=== PATIENT | male | born 1990 | race Two or more races ===

== ENCOUNTER 2021-05-10 11:59 | Emergency (ER) | payer SELFPAY ==
[2021-05-10 12:13] VITALS: BP 164/102; PULSE 150; RESP 22; TEMP 36.8; O2SAT 98
--- NOTE | 2021-05-10 12:18 | ED.ABDPAIN ---
HPI - Abdominal Pain General Chief Complaint: Abdominal Pain Stated Complaint: Stomach Pain Time Seen by Provider: 05/10/21 12:11 Source: patient and RN notes reviewed Mode of arrival: ambulatory Limitations: no limitations History of Present Illness HPI narrative: 30-year-old male presents with concern for abdominal pain for 2 to 3 days. Reports his last bowel movement was on Friday. Reports feeling hot and sweaty. Denies vomiting or diarrhea. MD elicited complaint: abdominal pain Related Data Home Medications Medication Instructions Recorded Confirmed No Home Medications 05/10/21 05/10/21 Allergies Allergy/AdvReac Type Severity Reaction Status Date / Time No Known Allergies Allergy Verified 05/10/21 12:11 Review of Systems Review of Systems: CONSTITUTIONAL: Reports malaise,sweats. Denies fever. GASTROINTESTINAL: Reports abdominal pain, bloating, constipation. Denies nausea, vomiting, diarrhea, bloody, or mucous stools. All systems reviewed & are unremarkable except as noted in HPI and below PMFSH Social History Social History Gender identity (if verbalized by the patient): Male Comments At time of signature, agree with nursing past medical, surgical, social and family history. There is no relevant family history pertinent to the presenting complaint Exam Narrative: GENERAL: ill-appearing, diaphoretic HEAD: Normocephalic. EYES: PERRLA, sclera jaundiced NECK: Supple. CHEST: Clear to auscultation. No respiratory distress. HEART: Tachycardic ABDOMEN: Tender, distended, hypo-active bowel sounds SKIN: Warm, diaphoretic NEURO: Alert and oriented x3. PSYCH: Normal mood and affect Course Course Emergency Course: Patient is aware of, understands and agrees be transferred to the emergency department via EMS. Portions of this record may have been created with voice recognition software Vital Signs Vital signs: Vital Signs Temperature 98.2 F 05/10/21 12:13 Pulse Rate 150 H 05/10/21 12:13 Respiratory Rate 22 H 05/10/21 12:13 Blood Pressure 164/102 H 05/10/21 12:13 Pulse Oximetry 98 05/10/21 12:13 Temperature 98.2 F 05/10/21 12:13 Pulse Rate 150 H 05/10/21 12:13 Respiratory Rate 22 H 05/10/21 12:13 Blood Pressure 164/102 H 05/10/21 12:13 Pulse Oximetry 98 05/10/21 12:13 Reviewed. Patient's condition did not allow for education about hypertension Transfer Transfered to: [place] Transportation: ALS Transfer rationale: Abdominal pain, tachycardia Accepting physician: Dr. Ochoa, report given directly to Dr. Ochoa MDM - Abdominal Pain MDM Narrative Medical decision making narrative: Exam findings warrant further evaluation emergency department Differential Diagnosis Differential diagnosis: Likely abdominal pain, acute appendicitis, constipation, diverticulitis, small bowel obstruction and other (Acute abdomen) Critical Care Time Critical Care Time Critical Care Time: No Discharge Plan Discharge Clinical Impression: Abdominal pain Qualifiers: Abdominal location: generalized Qualified Code(s): R10.84 - Generalized abdominal pain Patient Disposition: Acute Care Hospital Condition: Stable Prescriptions: No Action No Home Medications RF: 0 Follow-up/Referrals: PHYSICIAN,LASER PRINTING OPERATOR [Primary Care Provider] - Time of Disposition: 13:32
[2021-05-10 12:25] VITALS: BP 155/115; PULSE 145
== END 2021-05-10 12:25 | disposition short-term general hospital (02) ==
PROVIDERS: Emergency Provider Nurse Practitioner
DX: R10.84 Generalized abdominal pain (principal)
CPT/HCPCS: 99205; G0463

== ENCOUNTER 2021-05-10 12:44 | Inpatient (IN) | payer SELFPAY ==
--- NOTE | ~2021-05-10 | CT_ITS ---
EXAMINATION: CT abdomen pelvis w con INDICATION: Generalized abdominal pain TECHNIQUE: Computed tomographic images of the abdomen and pelvis were obtained after the administrati on of 100 cc of Omnipaque 350 intravenous contrast. The dose-length product (DLP) was 718.04 mGy-cm. Automated exposure control and iterative reconstruction technique were employed. COMPARISON: None available FINDINGS: Minimal dependent atelectasis is present in the lung bases. The heart size is normal. There is a small left pleural effusion. Bilateral gynecomastia is noted. The liver, spleen, gallbladder, a nd adrenal glands are normal. There is decreased enhancement in the body and tail of the pancreas rel ative to the head and neck. There is fluid within the body and tail of pancreas as well as surroundin g the pancreas. Fluid also tracks along the pericolic gutters and into the pelvis. The kidneys are un remarkable. No pathologically enlarged abdominal or pelvic lymph nodes are identified. There is no fr ee intraperitoneal gas or evidence of bowel obstruction. The appendix is normal. IMPRESSION: 1. Findings consistent with necrotizing pancreatitis with sterile acute necrotic collections. 2. Small volume of ascites. Reviewed, dictated and finalized at location B. IMPRESSION: 1. Findings consistent with necrotizing pancreatitis with sterile acute necroti c collections. 2. Small volume of ascites.
--- NOTE | ~2021-05-10 | XR_ITS ---
EXAMINATION: XR chest 1V portable DATE: 05/10/2021 16:19 INDICATION: Sepsis. Pancreatitis. TECHNIQUE: frontal view of the chest was obtained. COMPARISON: CT abdomen and pelvis dated 05/10/2021 FINDINGS: Small left pleural effusion with blunting at the left costophrenic angle. Opacities in the bilateral lower lung zones. No pneumothorax or right pleural effusion. The cardiomediastinal silhouette is norm al. Visualized bones and soft tissues are unremarkable. IMPRESSION: 1. Opacities in the bilateral lower lung zones which could represent atelectasis, pneumonia or pulmon nir edema. 2. Small left pleural effusion. Reviewed, dictated and finalized at location A. IMPRESSION: 1. Opacities in the bilateral lower lung zones which could represent atelectasi s, pneumonia or pulmonary edema. 2. Small left pleural effusion.
[2021-05-10 12:45] VITALS: BP 161/109; PULSE 136; RESP 21; TEMP 36.1; O2SAT 97
--- NOTE | 2021-05-10 12:45 | ED.ABDPAIN ---
HPI - Abdominal Pain General Chief Complaint: Abdominal Pain Stated Complaint: Abd pain, fast heart rate Time Seen by Provider: 05/10/21 12:45 History of Present Illness HPI narrative: Generalized abdominal pain and distension for a few days. Associated with constipation and nausea. Last BM 2 days ago. Seen at urgent care today and noted to be jaundiced. He was previously a daily drinker, last drink 2 days ago. Related Data Home Medications Medication Instructions Recorded Confirmed No Home Medications 05/10/21 05/10/21 Allergies Allergy/AdvReac Type Severity Reaction Status Date / Time No Known Allergies Allergy Verified 05/10/21 12:11 Review of Systems Review of Systems: All systems reviewed & are unremarkable except as noted in HPI and below Constitutional: Constitutional: Denies fever(s) Cardiovascular: Cardiovascular: Denies chest pain Respiratory: Respiratory: Denies dyspnea Gastrointestinal: Gastrointestinal: Reports abdominal pain and Reports nausea Genitourinary: Genitourinary: Reports no additional male genitourinary complaints Neurologic: Reports weakness [facility] Social History Social History (Updated 05/10/21 @ 16:56 by Salvador Em MD) Alcohol intake: current Alcohol use details: Daily, heavy Gender identity (if verbalized by the patient): Male Exam Const: General: alert and ill appearing acutely Orientation/consciousness: patient oriented x3 Other: Mild distress HENMT: Head: normal to inspection Eyes: Conjunctivae: conjunctival abnormality bilateral conjunctival icterus Neck: Neck: normal visual inspection Resp: Effort & Inspection: normal respiratory effort Auscultation: clear to auscultation bilaterally Cardio: Rate: tachycardic Rhythm: regular rhythm GI: Inspection: distended GI Palp: Yes Tenderness to palpation present (GI), No Guarding due to palpation present (GI) and No Rebound tenderness present Percussion: Yes Fluid wave present Skin: General skin exam: jaundice Neuro: General: patient oriented x3, moves all extremities and no focal motor deficits Other: tremor. Extrem: General: normal to inspection Course Vital Signs Vital signs: Vital Signs Temperature 36.1 C L 05/10/21 12:45 Pulse Rate 136 H 05/10/21 12:45 Respiratory Rate 21 H 05/10/21 12:45 Blood Pressure 161/109 H 05/10/21 12:45 Pulse Oximetry 97 05/10/21 12:45 Temperature 36.1 C L 05/10/21 12:45 Pulse Rate 97 05/10/21 16:22 Respiratory Rate 18 05/10/21 16:22 Blood Pressure 133/96 H 05/10/21 16:22 Pulse Oximetry 100 05/10/21 16:22 MDM - Abdominal Pain MDM Narrative Medical decision making narrative: CT shows necrotizing pancreatitis. Dr. St recommending transfer. Dr. Alves will consult, but feels transfer would be better if posible. [facility], [facility], [facility] all have no beds. Placed on wait list for [facility] and [facility]. Neither of the medical centers in [place] have any beds available. Differential Diagnosis Differential diagnosis: Likely acute appendicitis, calculus of kidney, constipation, diverticulitis, pancreatitis and small bowel obstruction Medical Records Attestation: I reviewed the patient's medical records. Lab Data Attestation: I reviewed the patient's lab results. Result diagrams: 05/10/21 13:15 05/10/21 13:15 Labs: Lab Results 05/10/21 05/10/21 05/10/21 Range/Units 13:15 13:15 13:15 WBC 24.4 H (4.5-10.0) K/mm3 RBC 5.70 (4.6-6.20) M/mm3 Hgb 20.9 H (14.0-18.0) g/dL Hct 59.0 H (42.0-52.0) % MCV 103.5 H (80-100) fl MCH 36.7 H (26-34) pg MCHC 35.4 (32-36) g/dl RDW 15.5 H (11.5-14.5) % Plt Count 101 L (150-375) k/mm3 MPV 11.0 H (7.4-10.4) fl Immature Gran % (Auto) 0.8 H (0-0.5) % Neut % (Auto) 92.4 H (45.5-73.1) % Lymph % (Auto) 2.9 L (18.3-44.2) % [place] % (Auto) 3.3 (2.6-8.5) % Eos % (Auto) 0.0 (0-4.4) % Baso % (Auto) 0.6 (0.
[2021-05-10] MEDS: LORazepam INJ (*CRX) 2 MG/ML VIAL IV PUSH ×3 (13:01→22:51)
[2021-05-10] MEDS: SODIUM CHLORIDE 0.9% IV 1,000 ML 999 ML IV CONT ×3 (13:02→15:19)
--- NOTE | 2021-05-10 13:05 | ECG_ITS ---
Rate 129 CO 142 QRSd 89 QT 317 QTc 465 --[place]-- P 44 QRS 42 T 11 SINUS TACHYCARDIA DELAYED PRECORDIAL R/S TRANSITION BORDERLINE T WAVE ABNORMALITY- INFERIOR LEADS BASELINE ARTIFACT- II, III, AVR, AVF, V1, V3-V6 ABNORMAL ECG Electronically Signed On 05-11-2021 14:34:58 CDT by El Gonzalez D.O. NO PREVIOUS ECG AVAILABLE FOR COMPARISON [facility]
[2021-05-10 13:36] LABS: Lactic Acid Reflex 2.8 mmol/L (0.7-2.1)
[2021-05-10 13:37] LABS: Alanine Aminotransferase 73 U/L (4-50); Albumin Level 4.5 g/dL (3.5-5.1); Alkaline Phosphatase 110 U/L (38-126); Anion Gap 13 mmol/L (8-16); Aspartate Amino Transferase 79 U/L (17-59); Basophils Absolute Auto 0.1 K/mm3 (0.0-0.1); Basophils Percent Auto 0.6 % (0.2-1.2); Bilirubin,Total 5.9 mg/dL (0.2-1.3); Blood Urea Nitrogen 13 mg/dL (9-20); Calcium 8.9 mg/dL (8.4-10.2); Carbon Dioxide 27 mmol/L (22-30); Chloride 88 mmol/L (98-107); Estimated CRCL calculation 147 ml/min; Estimated Glomerular Filt Rate > 60; Glucose 198 mg/dL (65-110); Hemoglobin 20.9 g/dL (14.0-18.0); Immature Granulocyte Percent A 0.8 % (0-0.5); Lipase 1465 U/L (23-300); Lymphocytes Percent Auto 2.9 % (18.3-44.2); Mean Corpuscular HGB Conc 35.4 g/dl (32-36); Mean Corpuscular Hemoglobin 36.7 pg (26-34); Mean Corpuscular Volume 103.5 fl (80-100); Monocytes Absolute Auto 0.8 K/mm3 (0.1-0.6); Monocytes Percent Auto 3.3 % (2.6-8.5); Neutrophils Absolute Auto 22.6 K/mm3 (1.3-6.7); Neutrophils Percent Auto 92.4 % (45.5-73.1); Nucleated Red Blood Cells Perc 0.1 % (0.0-0.2); Platelet Count Result 101 k/mm3 (150-375); Potassium 4.6 mmol/L (3.4-5.0); Red Cell Distribution Width 15.5 % (11.5-14.5); Sodium 128 mmol/L (137-145); White Blood Count 24.4 K/mm3 (4.5-10.0)
[2021-05-10 13:45] LABS: INR 1.2; Prothrombin Time 14.8 Seconds (11.1-14.7)
[2021-05-10 13:46] LABS: Partial Thromboplastin Time 28.1 SECONDS (22.3-36.8)
[2021-05-10 13:56] LABS: Large Platelets Present; Platelet Estimate Adequate (Adequate)
[2021-05-10 13:57] LABS: Atypical Lymphocytes Present
[2021-05-10 14:22] VITALS: BP 133/96; PULSE 127; RESP 20; O2SAT 96
[2021-05-10 14:46] LABS: Add Urine Microscopic? YES; Appearance Urine Clear (Clear); Bilirubin Urine Negative (Negative); Blood Urine 3+ (Negative); Color Urine Amber (Yellow); Glucose Urine UA 3+ mg/dL (Negative); Ketones Urine 2+ mg/dL (Negative); Leukocyte Esterase Ur Negative LEU/UL (Negative); Mucus Urine Rare /lpf; Nitrate Urine Negative (Negative); Protein Urine 2+ mg/dL (Negative); RBC Urine >75 /hpf (0-2); Urobilinogen Urine Negative mg/dL (<2.0)
[2021-05-10 14:53] LABS: Specific Grav Ur 1.005 (1.001-1.035)
[2021-05-10] MEDS: fentaNYL CITRATE INJ (*CRX) 100 MCG/2 ML VIAL 50 MCG IV PUSH (15:19)
[2021-05-10 16:22] VITALS: BP 133/96; PULSE 97; RESP 18; O2SAT 100
[2021-05-10 16:23] LABS: Reflex Lactic Acid Yes or No Add Lactic
[2021-05-10] MEDS: SODIUM CHLORIDE 0.9% IV 2,000 ML 999 ML IV CONT (16:25)
[2021-05-10 16:44] LABS: Alveolar/Arterial O2 Gradient 43.6 mmHg; Base Excess ABG -1.4 mEq/l (+/-2.0); Fractional Inspired Oxygen 21 %; HCO3 ABG 21.6 mEq/l (22.0-26.0); Oxygen Content ABG 25.8 %vol (16.0-22.0); Oxyhemoglobin 91.6 % THb (90.0-100.0); PCO2 ABG 32.9 mmHg (35.0-45.0); PO2 ABG 66.7 mmHg (80.0-100.0); PO2 FiO2 Ratio Arterial Blood 3.18 %; Total Hemoglobin 20.1 g/dL (12.0-18.0); pH ABG 7.435 (7.350-7.450)
[2021-05-10 16:45] LABS: Device ROOM AIR; Modified Allen's Test Pass; Site Drawn LEFT RADIAL
[2021-05-10 16:49] LABS: Lactate Dehydrogenase 1308 U/L (313-618); Lactic Acid 1.7 mmol/L (0.7-2.1)
[2021-05-10] MEDS: THIAMINE HCL 200 MG/2 ML VIAL 100 MG IV PUSH (18:46)
[2021-05-10] MEDS: SODIUM CHLORIDE 0.9% IV 1,000 ML 200 ML IV CONT (18:46)
[2021-05-10 18:53] VITALS: PULSE 126; RESP 20; TEMP 36.6; O2SAT 97
--- NOTE | 2021-05-10 19:50 | PM.IMHP ---
H&P: HPI History of Present Illness Date/Time: 05/10/21 19:50 Chief Complaint: abdominal pain Narrative: 30-year-old male with past medical history of chronic alcohol abuse who presented to the ER from urgent care via EMS due to abdominal pain. The patient reports that he has had abdominal distension for several years due to his chronic alcohol abuse. However his abdomen has been more distended since Friday. He reports onset of generalized abdominal pain that started on Friday and was accompanied by several episodes of emesis. He reports his emesis was of the food he had eaten. He denies any coffee-ground emesis or hematemesis. He reports that the pain seemed to get better over the course of that evening but worse the next morning when he chugged a bottle of water. The pain has become so bad that he has not been able to drink his usual handle of bourbon a day. He has been drinking handle of bourbon a day ever since the beginning of the pandemic. He has drank heavily/daily for the last 10 years. He has never had an episode of alcohol withdrawal in the past but also has not stopped drinking alcohol for more than 24 hours and quite a long time. He reports that he has not been able tolerate any food for the last 4 days. His fiancee reports that his eyes have been yellow for at least several months. She has also noticed that his skin is been more yellow for even longer than that. He reports that his last bowel movement was on Friday and was smaller in amount but normal consistency. He denies any hematochezia or melena. He does report shortness of breath but he relates it to the severity of his abdominal pain and not being able to take a deep breath. He has not been able to sleep well could see usually sleeps lying on his abdomen. He reports that his abdominal pain is currently 5 out in 10 and intensity but is up to a 10/10 intensity when his abdomen is palpated. He has been using OxyContin that he has been buying off the street to help manage his pain. The patient also reported some hematuria in the ER. He reported the hematuria started in the ER and he had a small amount of hematuria once he arrived to the ICU. He denies any dysuria or changes in urinary frequency. The patient was a relatively reliable historian until just before I left the room at which time he started having some mumbling speech. He briefly seemed confused but corrected himself. When I asked him about where he was getting his OxyContin the pointed to the nurse and stated that she had been giving him is OxyContin. Review of Systems Review of Systems: 12 systems were reviewed with pertinent positives and negatives per HPI. Except as documented in the HPI, all other systems were reviewed and are negative. [facility] Past Medical History Medical History (Updated 05/11/21 @ 00:[address] DO) Alcoholism Surgical History Surgical History (Updated 05/11/21 @ 00:[address] DO) No significant past surgical history Family History Family History (Updated 05/11/21 @ 00:[address] DO) Other Unknown family medical history Social History Social History (Updated 05/11/21 @ 00:[address] DO) Smoking packs per day: 1 Smoking cigarettes per day: 20.0 Years smoked: 7 Smoking pack-years: 7.00 Smoking status: Current every day smoker Tobacco type: cigarettes Alcohol intake: current Drinks per week: 100 Alcohol use details: One handle of bourbon daily. Substance use: current Substance use type: marijuana and opiates Other substance usage details: Frequent marijuana and OxyContin use. Additional living arrangements comments: He lives with his fiancee. Occupation/Education: unemployed Gender identity (if verbalized by the patient): Male Spiritual care concerns: No Comments He reports that both of his parents are alive and living in [facility]. He does not know their past medical history.
[2021-05-10] MEDS: MORPHINE SULFATE (*CRX) 4 MG/ML INJ IV PUSH (20:28)
[2021-05-10 21:49] VITALS: BMI 27.3
[2021-05-10 22:00] VITALS: PULSE 120
--- NOTE | 2021-05-10 23:03 | ADMGEN ---
This patient, Pranay Pablo, was admitted to Intensive Care Unit-9 at 2133. Patient/family oriented to hospital policies and general routines including ID bracelet, bed and alarms, visiting hours, pain management, procedures, bathroom and other care routines, personal items, smoking policy, room service/diet, and visiting hours. Information on how to activate the Rapid Response Team has been discussed. Patient/Family are encouraged to report perceived risks to care and to ask questions if they do not understand what they are told or what they should do.
[2021-05-10 23:07] VITALS: BP 143/106; PULSE 119; RESP 30; TEMP 37.7; O2SAT 95
[2021-05-11] VITALS (14 sets, daily range): BP systolic 141–166; BP diastolic 90–116; PULSE 93–709; RESP 16–93; TEMP 36.8–37.7; O2SAT 92–96
[2021-05-11] MEDS: SODIUM CHLORIDE 0.9% IV 1,000 ML 200 ML IV CONT (01:17)
[2021-05-11 02:19] LABS: Amphetamine Screen Urine Negative (Negative); Barbiturate Screen Urine Negative (Negative); Benzodiazepines Screen Urine Positive (Negative); Cannabinoid Screen Urine Positive (Negative); Cocaine Screen Urine Negative (Negative); Methadone Screen Urine Negative (Negative); Opiate Screen Urine Positive (Negative); Phencyclidine Screen Urine Negative (Negative)
[2021-05-11] MEDS: MORPHINE SULFATE (*CRX) 4 MG/ML INJ IV PUSH (03:01)
[2021-05-11] MEDS: LORazepam INJ (*CRX) 2 MG/ML VIAL IV PUSH ×2 (03:01→09:47)
[2021-05-11 05:02] LABS: Basophils Absolute Auto 0.1 K/mm3 (0.0-0.1); Basophils Percent Auto 0.4 % (0.2-1.2); Eosinophils Absolute Auto 0.1 K/mm3 (0-0.3); Eosinophils Percent Auto 0.6 % (0-4.4); Hematocrit 51.2 % (42.0-52.0); Hemoglobin 17.6 g/dL (14.0-18.0); Immature Granulocyte Absolute 0.33 K/mm3 (0.00-0.031); Immature Granulocyte Percent A 1.6 % (0-0.5); Immature Platelet Fraction Pct 6.7 % (0.9-11.2); Lymphocytes Absolute Auto 1.03 K/mm3 (0.9-3.2); Lymphocytes Percent Auto 5.1 % (18.3-44.2); Mean Corpuscular HGB Conc 34.4 g/dl (32-36); Mean Corpuscular Hemoglobin 36.4 pg (26-34); Mean Platelet Volume 10.6 fl (7.4-10.4); Monocytes Absolute Auto 0.6 K/mm3 (0.1-0.6); Monocytes Percent Auto 2.8 % (2.6-8.5); Neutrophils Percent Auto 89.5 % (45.5-73.1); Platelet Count Result 109 k/mm3 (150-375); Red Blood Count 4.83 M/mm3 (4.6-6.20); Red Cell Distribution Width 15.3 % (11.5-14.5); White Blood Count 20.2 K/mm3 (4.5-10.0)
[2021-05-11 05:10] LABS: INR 1.2; Prothrombin Time 15.3 Seconds (11.1-14.7)
[2021-05-11 05:11] LABS: Partial Thromboplastin Time 29.7 SECONDS (22.3-36.8)
[2021-05-11 05:19] LABS: Alanine Aminotransferase 42 U/L (4-50); Albumin Level 2.9 g/dL (3.5-5.1); Alkaline Phosphatase 75 U/L (38-126); Anion Gap 6 mmol/L (8-16); Aspartate Amino Transferase 55 U/L (17-59); Bilirubin,Total 4.4 mg/dL (0.2-1.3); Blood Urea Nitrogen 12 mg/dL (9-20); Calcium 7.5 mg/dL (8.4-10.2); Carbon Dioxide 23 mmol/L (22-30); Chloride 102 mmol/L (98-107); Estimated CRCL calculation 173 ml/min; Estimated Glomerular Filt Rate > 60; Glucose 121 mg/dL (65-110); Lactate Dehydrogenase 1388 U/L (313-618); Lipase 646 U/L (23-300); Magnesium 1.9 mg/dL (1.6-2.3); Phosphorus 1.1 mg/dL (2.5-4.5); Potassium 3.4 mmol/L (3.4-5.0); Sodium 131 mmol/L (137-145)
[2021-05-11 06:15] LABS: Alveolar/Arterial O2 Gradient 46.9 mmHg; Base Excess ABG -2.1 mEq/l (+/-2.0); Carboxyhemoglobin 1.1 % THb (0-2.0); Device ROOM AIR; Fractional Inspired Oxygen 21 %; HCO3 ABG 20.6 mEq/l (22.0-26.0); Methemoglobin ABG 0.6 %THb (0-1.5); Modified Allen's Test Pass; Oxygen Content ABG 23.1 %vol (16.0-22.0); Oxygen Saturation ABG 93.9 % (95.0-100.0); Oxyhemoglobin 92.4 % THb (90.0-100.0); PCO2 ABG 30.9 mmHg (35.0-45.0); PO2 ABG 65.8 mmHg (80.0-100.0); PO2 FiO2 Ratio Arterial Blood 3.13 %; Reduced Hemoglobin 5.9 %THb (0-5.0); Site Drawn RIGHT RADIAL; Total Hemoglobin 17.8 g/dL (12.0-18.0); pH ABG 7.442 (7.350-7.450)
[2021-05-11 06:23] LABS: Folic Acid 2.3 ng/mL (2.76->20)
--- NOTE | 2021-05-11 09:24 | WPDCNINT ---
Assessment and Plan Assessment and plan (1) Acute alcoholic pancreatitis: Qualifiers: Acute pancreatitis complication: infected necrosis Qualified Code(s): K85.22 - Alcohol induced acute pancreatitis with infected necrosis Code(s): K85.20 - Alcohol induced acute pancreatitis without necrosis or infection Status: Acute Assessment and Plan: Acute alcoholic pancreatitis CT A/P 1. Findings consistent with necrotizing pancreatitis with sterile acute necrotic collections. 2. Small volume of ascites. Clinically appears to be improving as states that his abdominal pain is better, denies any nausea vomiting Lipase level is down 1465 -> 646 Patient requesting diet. Will start with water and see how he does and advance slowly as tolerated Being controlled IV fluids Check triglyceride level Due to necrotizing features on CT, transfer was initiated to tertiary [facility] for surgical opinion as general surgery at [facility] does not operate on pancreas. Due to COVID pandemic there are no beds available in any of the major hospitals in the area at this time (2) Sepsis: Code(s): A41.9 - Sepsis, unspecified organism Status: Acute Assessment and Plan: Patient met criteria for sepsis. Likely secondary to pancreatitis He has received adequate amount of IV fluids and is on IV antibiotics Zosyn His lactic acid level was normal (3) Ileus: Code(s): K56.7 - Ileus, unspecified Status: Acute Assessment and Plan: Likely secondary to pancreatitis Currently NPO Start with water (4) Electrolyte abnormality: Code(s): E87.8 - Other disorders of electrolyte and fluid balance, not elsewhere classified Status: Acute Assessment and Plan: Replace low phosphate and calcium (5) Alcoholism: Code(s): F10.20 - Alcohol dependence, uncomplicated Status: Acute Assessment and Plan: Patient is on thiamine will add folic acid Monitor for alcohol withdrawal signs and symptoms (6) Suspected COVID-19 virus infection: Code(s): Z20.822 - Contact with and (suspected) exposure to COVID-19 Status: Acute Assessment and Plan: COVID-19 suspected. SARS-CoV-2 PCR sent and results pending Patient is in Airborne, Droplet and Contact Isolation Additional Plan DVT prophylaxis -SCDs Code Status - Full Code IS Transfer out of ICU today Museum Technician Consult Note Consult date: 05/11/21 Time Seen: 08:00 HPI: Pranay Pablo is a 30 year old male with history of alcohol abuse presented with chief complaint of abdominal pain since Friday. Patient states that he drinks 2 bottles Jacinto Walker in a week and has been drinking for many years. Pain started on Friday. It was 10/10 sharp in the middle of abdomen and did not radiate anywhere else. No aggravating or relieving factors. He was also not having any bowel movements. He took multiple laxatives medication without any help. He also had nausea vomiting. Which has now resolved. Denies any blood in his vomitus. He denies any fever or diarrhea. Patient denies chest pain, shortness of breath, cough, headache. No change in the sensation of taste or smell. He has received COVID vaccine. In ER patient was found to be having acute pancreatitis. He was started on IV fluids IV antibiotics and admitted to ICU for further evaluation and management. This morning he states he feels better and his abdominal pain is down to 5/10. He denies any nausea vomiting at this time and states he would like to eat food. No other new complaints since coming to ICU. Is eager to be discharged. All other systems were reviewed and were negative Review of Systems Review of Systems: All systems reviewed & are unremarkable except as noted in HPI and below (HPI) [facility] Past Medical History Medical History (Updated 05/11/21 @ 09:35 by Fabian Leija MD) Alcoholism Surgical History Surgical History (Reviewed 05/11/21
[2021-05-11] MEDS: CALCIUM GLUC 2,000 MG/NS 100ML 2,000 MG/100 ML BAG 100 MG IVPB (09:45)
[2021-05-11] MEDS: SODIUM CHLORIDE 0.9% IV 1,000 ML 125 ML IV CONT ×2 (09:45→23:01)
[2021-05-11] MEDS: POTASSIUM PHOS,M-BASIC-D-BASIC 20 MMOL in SODIUM CHLORIDE 0.9% IV 250 ML 64.17 MMOL IVPB (11:43)
[2021-05-11] MEDS: THIAMINE HCL 200 MG/2 ML VIAL 100 MG IV PUSH (11:44)
[2021-05-11] MEDS: FOLIC ACID 1 MG/0.2 ML INJ IV PUSH (11:44)
--- NOTE | 2021-05-11 12:25 | PC.NURSE ---
This patient, Pranay Pablo, was transferred to [ 209] on 05/11/21 at 1220. Personal belongings sent with patient. Report given to [jose l prince]. Appropriate documentation sent with patient.
[2021-05-12] VITALS (14 sets, daily range): BP systolic 149–171; BP diastolic 99–114; PULSE 96–130; RESP 16–28; TEMP 36–37.1; O2SAT 95–97
[2021-05-12 04:10] LABS: SARS-CoV-2 RNA PCR Negative
[2021-05-12 05:44] LABS: Hematocrit 47.1 % (42.0-52.0); Hemoglobin 16.5 g/dL (14.0-18.0); Mean Corpuscular Hemoglobin 36.7 pg (26-34); Mean Corpuscular Volume 104.7 fl (80-100); Mean Platelet Volume 10.3 fl (7.4-10.4); Platelet Count Result 138 k/mm3 (150-375); Red Cell Distribution Width 14.9 % (11.5-14.5); White Blood Count 15.5 K/mm3 (4.5-10.0)
[2021-05-12 05:52] LABS: Alanine Aminotransferase 46 U/L (4-50); Albumin Level 3.1 g/dL (3.5-5.1); Alkaline Phosphatase 143 U/L (38-126); Anion Gap 5 mmol/L (8-16); Aspartate Amino Transferase 82 U/L (17-59); Bilirubin,Total 3.8 mg/dL (0.2-1.3); Blood Urea Nitrogen 12 mg/dL (9-20); Calcium 7.8 mg/dL (8.4-10.2); Carbon Dioxide 22 mmol/L (22-30); Chloride 101 mmol/L (98-107); Estimated CRCL calculation 173 ml/min; Estimated Glomerular Filt Rate > 60; Glucose 103 mg/dL (65-110); Lipase 326 U/L (23-300); Magnesium 2.1 mg/dL (1.6-2.3); Potassium 3.5 mmol/L (3.4-5.0); Sodium 128 mmol/L (137-145)
[2021-05-12] MEDS: THIAMINE HCL 200 MG/2 ML VIAL 100 MG IV PUSH (12:15)
[2021-05-12] MEDS: SODIUM CHLORIDE 0.9% IV 1,000 ML 125 ML IV CONT ×2 (12:16→18:26)
[2021-05-12] MEDS: FOLIC ACID 1 MG/0.2 ML INJ IV PUSH (14:34)
--- NOTE | 2021-05-12 19:29 | PM.IMPN ---
Progress Note: A&P Assessment and Plan (1) Acute alcoholic pancreatitis: Qualifiers: Acute pancreatitis complication: infected necrosis Qualified Code(s): K85.22 - Alcohol induced acute pancreatitis with infected necrosis Code(s): K85.20 - Alcohol induced acute pancreatitis without necrosis or infection Status: Acute Assessment and Plan: Acute alcoholic pancreatitis CT A/P 1. Findings consistent with necrotizing pancreatitis with sterile acute necrotic collections. 2. Small volume of ascites. Clinically appears to be improving as states that his abdominal pain is better, denies any nausea vomiting Lipase level is down 1465 -> 646 Patient requesting diet. Will start with water and see how he does and advance slowly as tolerated Being controlled IV fluids Check triglyceride level Due to necrotizing features on CT, transfer was initiated to tertiary [facility] for surgical opinion as general surgery at [facility] does not operate on pancreas. Patient has been accepted and signed out to [facility], just waiting for a bed, likely tomorrow (2) Sepsis: Code(s): A41.9 - Sepsis, unspecified organism Status: Acute Assessment and Plan: Patient met criteria for sepsis. Likely secondary to pancreatitis He has received adequate amount of IV fluids and is on IV antibiotics Zosyn His lactic acid level was normal (3) Ileus: Code(s): K56.7 - Ileus, unspecified Status: Acute Assessment and Plan: Likely secondary to pancreatitis Currently NPO Start with water (4) Electrolyte abnormality: Code(s): E87.8 - Other disorders of electrolyte and fluid balance, not elsewhere classified Status: Acute Assessment and Plan: Replace low phosphate and calcium (5) Alcoholism: Code(s): F10.20 - Alcohol dependence, uncomplicated Status: Acute Assessment and Plan: Patient is on thiamine will add folic acid Monitor for alcohol withdrawal signs and symptoms (6) Suspected COVID-19 virus infection: Code(s): Z20.822 - Contact with and (suspected) exposure to COVID-19 Status: Acute Assessment and Plan: COVID test was negative Subjective Date/time seen: 05/12/21 19:29 Interval history: Resting comfortably in bed with partner. No acute medical complaints, including denying pain. Wants to advance diet. Review of Systems Review of Systems: All systems reviewed & are unremarkable except as noted in HPI and below (HPI) Exam Narrative: General: Pt is alert awake and in NAD Lungs/Chest: Trachea central Clear BS B/L, No crackles or wheezing. Cardiac: RRR. Normal S1 S2. No murmurs Circulation: Pedal pulses are intact and symmetrical. Abdomen: Bowel sounds are decreased, belly is mildly distended, tenderness to palpation in epigastric area Soft. No guarding or rigidity Extremities: No clubbing, cyanosis or edema. Warm : Blum in place Neurologic: Follows commands. Moves all 4 extremities PERRL Skin: No Rash Objective Data Vital Signs Vital Signs: Vital Signs - 24 hr 05/11/21 20:00 05/11/21 22:00 05/12/21 00:00 Temperature 98.3 F 96.8 F L Pulse Rate 108 H 107 H 108 H Pulse Rate [Bilateral Radial] Respiratory Rate 93 H 16 Blood Pressure 163/111 H 169/112 H Pulse Oximetry 95 05/12/21 02:00 05/12/21 04:00 05/12/21 06:00 Temperature 96.9 F L Pulse Rate 106 H 105 H 106 H Pulse Rate [Bilateral Radial] Respiratory Rate 16 Blood Pressure 156/106 H Pulse Oximetry 96 05/12/21 08:00 05/12/21 10:00 05/12/21 12:00 Temperature 98.1 F 97.6 F Pulse Rate 105 H 126 H 101 H Pulse Rate [Bilateral Radial] 103 H 126 H 101 H Respiratory Rate 24 H 28 H Blood Pressure 171/105 H 162/108 H Pulse Oximetry 96 96 05/12/21 14:00 05/12/21 16:00 05/12/21 18:00 Temperature 97.5 F L Pulse Rate 103 H 100 107 H Pulse Rate [Bilateral Radial] 130 H 99 108 H Respiratory Rate 20 Blood Pr
[2021-05-13] VITALS (12 sets, daily range): BP systolic 151–163; BP diastolic 99–109; PULSE 89–108; RESP 16–20; TEMP 36.3–37; O2SAT 95–98
[2021-05-13] MEDS: SODIUM CHLORIDE 0.9% IV 1,000 ML 125 ML IV CONT ×3 (03:50→19:59)
[2021-05-13 04:58] LABS: Basophils Absolute Auto 0.1 K/mm3 (0.0-0.1); Basophils Percent Auto 0.6 % (0.2-1.2); Eosinophils Absolute Auto 0.1 K/mm3 (0-0.3); Eosinophils Percent Auto 0.9 % (0-4.4); Hematocrit 44.8 % (42.0-52.0); Hemoglobin 15.9 g/dL (14.0-18.0); Immature Granulocyte Percent A 1.9 % (0-0.5); Lymphocytes Absolute Auto 1.11 K/mm3 (0.9-3.2); Lymphocytes Percent Auto 10.5 % (18.3-44.2); Mean Corpuscular HGB Conc 35.5 g/dl (32-36); Mean Corpuscular Hemoglobin 37.1 pg (26-34); Mean Corpuscular Volume 104.4 fl (80-100); Mean Platelet Volume 10.8 fl (7.4-10.4); Monocytes Absolute Auto 0.5 K/mm3 (0.1-0.6); Monocytes Percent Auto 4.7 % (2.6-8.5); Neutrophils Absolute Auto 8.6 K/mm3 (1.3-6.7); Neutrophils Percent Auto 81.4 % (45.5-73.1); Nucleated Red Blood Cells Perc 0.3 % (0.0-0.2); Platelet Count Result 175 k/mm3 (150-375); Red Blood Count 4.29 M/mm3 (4.6-6.20); Red Cell Distribution Width 14.6 % (11.5-14.5); White Blood Count 10.5 K/mm3 (4.5-10.0)
[2021-05-13 05:16] LABS: Alanine Aminotransferase 40 U/L (4-50); Albumin Level 3.1 g/dL (3.5-5.1); Alkaline Phosphatase 139 U/L (38-126); Anion Gap 7 mmol/L (8-16); Aspartate Amino Transferase 64 U/L (17-59); Blood Urea Nitrogen 8 mg/dL (9-20); Calcium 7.5 mg/dL (8.4-10.2); Carbon Dioxide 21 mmol/L (22-30); Chloride 98 mmol/L (98-107); Estimated CRCL calculation 173 ml/min; Estimated Glomerular Filt Rate > 60; Glucose 121 mg/dL (65-110); Lipase 488 U/L (23-300); Magnesium 2.1 mg/dL (1.6-2.3); Phosphorus 1.6 mg/dL (2.5-4.5); Potassium 3.7 mmol/L (3.4-5.0); Sodium 126 mmol/L (137-145)
[2021-05-13] MEDS: ENOXAPARIN 40 MG/0.4 ML SYRINGE SUB-Q (10:29)
[2021-05-13] MEDS: FOLIC ACID 1 MG/0.2 ML INJ IV PUSH (10:29)
[2021-05-13] MEDS: THIAMINE HCL 200 MG/2 ML VIAL 100 MG IV PUSH (10:29)
[2021-05-13] MEDS: MORPHINE SULFATE (*CRX) 4 MG/ML INJ IV PUSH (10:51)
--- NOTE | 2021-05-13 17:27 | PM.IMPN ---
Progress Note: A&P Assessment and Plan (1) Acute alcoholic pancreatitis: Qualifiers: Acute pancreatitis complication: infected necrosis Qualified Code(s): K85.22 - Alcohol induced acute pancreatitis with infected necrosis Code(s): K85.20 - Alcohol induced acute pancreatitis without necrosis or infection Status: Acute (2) Sepsis: Code(s): A41.9 - Sepsis, unspecified organism Status: Acute (3) Ileus: Code(s): K56.7 - Ileus, unspecified Status: Acute (4) Electrolyte abnormality: Code(s): E87.8 - Other disorders of electrolyte and fluid balance, not elsewhere classified Status: Acute Assessment and Plan: Replace low phosphate and calcium (5) Alcoholism: Code(s): F10.20 - Alcohol dependence, uncomplicated Status: Acute (6) Suspected COVID-19 virus infection: Code(s): Z20.822 - Contact with and (suspected) exposure to COVID-19 Status: Acute Assessment and Plan: COVID test was negative Additional Plan acute pancreatitis, concern for necrotizing pancreatitis likely secondary to alcoholism lipase trending down CT showing evidence of necrotizing pancreatitis evaluated by director title, recommend transfer to outside hospital as in house surgery will not address pancreatic issue patient has been accepted at [facility], and signed out, awaiting bed Subjective Date/time seen: 05/13/21 17:27 no acute medical complaints, lying comfortably in bed Review of Systems Review of Systems: All systems reviewed & are unremarkable except as noted in HPI and below (HPI) Exam Narrative: General: Pt is alert awake and in NAD Lungs/Chest: Trachea central Clear BS B/L, No crackles or wheezing. Cardiac: RRR. Normal S1 S2. No murmurs Circulation: Pedal pulses are intact and symmetrical. Abdomen: Bowel sounds are decreased, belly is mildly distended, tenderness to palpation in epigastric area Soft. No guarding or rigidity Extremities: No clubbing, cyanosis or edema. Warm : Blum in place Neurologic: Follows commands. Moves all 4 extremities PERRL Skin: No Rash Objective Data Vital Signs Vital Signs: Vital Signs - 24 hr 05/12/21 18:00 05/12/21 19:54 05/12/21 20:00 Temperature 98.7 F Pulse Rate 107 H 102 H 104 H Pulse Rate [Bilateral Pedal (Dorsalis Pedis) Palpation] Pulse Rate [Bilateral Radial] 108 H Respiratory Rate 16 Blood Pressure 161/107 H Pulse Oximetry 95 05/12/21 22:00 05/12/21 23:51 05/13/21 00:00 Temperature 97.8 F Pulse Rate 96 103 H 99 Pulse Rate [Bilateral Pedal (Dorsalis Pedis) Palpation] Pulse Rate [Bilateral Radial] Respiratory Rate 16 Blood Pressure 149/99 H Pulse Oximetry 96 05/13/21 02:00 05/13/21 04:00 05/13/21 05:45 Temperature 97.4 F L Pulse Rate 101 H 107 H 97 Pulse Rate [Bilateral Pedal (Dorsalis Pedis) Palpation] Pulse Rate [Bilateral Radial] Respiratory Rate 16 Blood Pressure 161/109 H Pulse Oximetry 97 05/13/21 08:00 05/13/21 10:00 05/13/21 12:00 Temperature 98.4 F 97.3 F L Pulse Rate 98 94 95 Pulse Rate [Bilateral Pedal (Dorsalis Pedis) Palpation] 100 99 Pulse Rate [Bilateral Radial] 108 H 99 Respiratory Rate 16 18 Blood Pressure 151/102 H 157/103 H Pulse Oximetry 98 98 05/13/21 14:00 Temperature Pulse Rate 97 Pulse Rate [Bilateral Pedal (Dorsalis Pedis) Palpation] Pulse Rate [Bilateral Radial] Respiratory Rate Blood Pressure Pulse Oximetry Intake/Output Intake/Output: Intake & Output 05/10/21 05/11/21 05/12/21 05/13/21 23:59 23:59 23:59 23:59 Intake Total 6050 3050 3180 2770 Output Total 1000 1550 1500 Balance 6050 2050 1630 1270 Meds/Results Medications: Active Medications Generic Name Dose Route Start Last Admin Trade Name Freq PRN Reason Stop Dose Admin Enoxaparin Sodium 40 mg 05/13/21 09:00 05/13/21 10:29 Enoxaparin 40 Mg/0.4 Ml Syringe SUB-Q 40 mg DAILY LAMONT Admini
[2021-05-14] VITALS (17 sets, daily range): BP systolic 146–164; BP diastolic 102–108; PULSE 77–105; RESP 16–20; TEMP 36–36.8; O2SAT 98–100
[2021-05-14] MEDS: diphenhydrAMINE HCl CAP 25 MG CAPSULE PO (01:42)
[2021-05-14 06:17] LABS: Basophils Absolute Auto 0.1 K/mm3 (0.0-0.1); Basophils Percent Auto 0.9 % (0.2-1.2); Eosinophils Absolute Auto 0.1 K/mm3 (0-0.3); Eosinophils Percent Auto 1.6 % (0-4.4); Hematocrit 44.9 % (42.0-52.0); Hemoglobin 15.8 g/dL (14.0-18.0); Immature Granulocyte Absolute 0.34 K/mm3 (0.00-0.031); Immature Granulocyte Percent A 3.9 % (0-0.5); Lymphocytes Percent Auto 13.8 % (18.3-44.2); Mean Corpuscular HGB Conc 35.2 g/dl (32-36); Mean Corpuscular Hemoglobin 36.7 pg (26-34); Mean Corpuscular Volume 104.4 fl (80-100); Monocytes Absolute Auto 0.7 K/mm3 (0.1-0.6); Monocytes Percent Auto 7.6 % (2.6-8.5); Neutrophils Absolute Auto 6.3 K/mm3 (1.3-6.7); Neutrophils Percent Auto 72.2 % (45.5-73.1); Nucleated Red Blood Cells Perc 0.3 % (0.0-0.2); Platelet Count Result 152 k/mm3 (150-375); Red Cell Distribution Width 14.1 % (11.5-14.5); White Blood Count 8.7 K/mm3 (4.5-10.0)
[2021-05-14] MEDS: SODIUM CHLORIDE 0.9% IV 1,000 ML 125 ML IV CONT ×3 (06:27→23:59)
[2021-05-14 06:36] LABS: Alanine Aminotransferase 48 U/L (4-50); Albumin Level 3.3 g/dL (3.5-5.1); Alkaline Phosphatase 143 U/L (38-126); Anion Gap 6 mmol/L (8-16); Aspartate Amino Transferase 89 U/L (17-59); Bilirubin,Total 2.4 mg/dL (0.2-1.3); Blood Urea Nitrogen 7 mg/dL (9-20); Calcium 7.9 mg/dL (8.4-10.2); Carbon Dioxide 19 mmol/L (22-30); Chloride 103 mmol/L (98-107); Estimated CRCL calculation 210 ml/min; Estimated Glomerular Filt Rate > 60; Glucose 109 mg/dL (65-110); Lipase 563 U/L (23-300); Magnesium 2.2 mg/dL (1.6-2.3); Phosphorus 2.2 mg/dL (2.5-4.5); Potassium 4.2 mmol/L (3.4-5.0); Sodium 128 mmol/L (137-145)
--- NOTE | 2021-05-14 07:31 | PM.IMPN ---
Progress Note: A&P Assessment and Plan (1) Acute alcoholic pancreatitis: Qualifiers: Acute pancreatitis complication: infected necrosis Qualified Code(s): K85.22 - Alcohol induced acute pancreatitis with infected necrosis Code(s): K85.20 - Alcohol induced acute pancreatitis without necrosis or infection Status: Acute (2) Sepsis: Code(s): A41.9 - Sepsis, unspecified organism Status: Acute (3) Ileus: Code(s): K56.7 - Ileus, unspecified Status: Acute (4) Electrolyte abnormality: Code(s): E87.8 - Other disorders of electrolyte and fluid balance, not elsewhere classified Status: Acute Assessment and Plan: Replace low phosphate and calcium (5) Alcoholism: Code(s): F10.20 - Alcohol dependence, uncomplicated Status: Acute (6) Suspected COVID-19 virus infection: Code(s): Z20.822 - Contact with and (suspected) exposure to COVID-19 Status: Acute Assessment and Plan: COVID test was negative Additional Plan acute pancreatitis, concern for necrotizing pancreatitis likely secondary to alcoholism lipase trending down CT showing evidence of necrotizing pancreatitis evaluated by biodiesel plant manager, recommend transfer to outside hospital as in house surgery will not address pancreatic issue patient has been accepted at [facility], and signed out, awaiting bed Subjective Date/time seen: 05/14/21 07:31 Interval history: No acute medical complaints, resting in bed, tolerating slowly advancin diet. Had discussion regarding transfer, notified patient he is accepted, just waiting for bed [facility] Review of Systems Review of Systems: All systems reviewed & are unremarkable except as noted in HPI and below (HPI) Exam Narrative: General: Pt is alert awake and in NAD Lungs/Chest: Trachea central Clear BS B/L, No crackles or wheezing. Cardiac: RRR. Normal S1 S2. No murmurs Circulation: Pedal pulses are intact and symmetrical. Abdomen: Bowel sounds are decreased, belly is mildly distended, tenderness to palpation in epigastric area Soft. No guarding or rigidity Extremities: No clubbing, cyanosis or edema. Warm : Blum in place Neurologic: Follows commands. Moves all 4 extremities PERRL Skin: No Rash Objective Data Vital Signs Vital Signs: Vital Signs - 24 hr 05/13/21 08:00 05/13/21 10:00 05/13/21 12:00 Temperature 98.4 F 97.3 F L Pulse Rate 98 94 95 Pulse Rate [Bilateral Pedal (Dorsalis Pedis) Palpation] 100 99 Pulse Rate [Bilateral Radial] 108 H 99 Respiratory Rate 16 18 Blood Pressure 151/102 H 157/103 H Pulse Oximetry 98 98 05/13/21 14:00 05/13/21 16:00 05/13/21 18:00 Temperature 98.6 F Pulse Rate 97 89 94 Pulse Rate [Bilateral Pedal (Dorsalis Pedis) Palpation] 97 Pulse Rate [Bilateral Radial] 97 Respiratory Rate 20 Blood Pressure 163/108 H Pulse Oximetry 98 05/13/21 20:00 05/13/21 22:00 05/14/21 00:00 Temperature 97.6 F 97.2 F L Pulse Rate 97 89 96 Pulse Rate [Bilateral Pedal (Dorsalis Pedis) Palpation] Pulse Rate [Bilateral Radial] Respiratory Rate 18 16 Blood Pressure 159/99 H 154/107 H Pulse Oximetry 95 98 05/14/21 02:00 05/14/21 03:45 05/14/21 04:00 Temperature 96.8 F L Pulse Rate 88 98 95 Pulse Rate [Bilateral Pedal (Dorsalis Pedis) Palpation] Pulse Rate [Bilateral Radial] Respiratory Rate 18 Blood Pressure 156/102 H Pulse Oximetry 99 05/14/21 06:00 Temperature Pulse Rate 87 Pulse Rate [Bilateral Pedal (Dorsalis Pedis) Palpation] Pulse Rate [Bilateral Radial] Respiratory Rate Blood Pressure Pulse Oximetry Intake/Output Intake/Output: Intake & Output 05/11/21 05/12/21 05/13/21 05/14/21 23:59 23:59 23:59 23:59 Intake Total 3050 3180 5490 1100 Output Total 1000 1550 3500 1175 Balance 2050 1630 1989 Meds/Results Medications: Active Medications Generic Name Dose Route Start Last Admin Trade Name Freq PRN Reas
[2021-05-14] MEDS: THIAMINE HCL 200 MG/2 ML VIAL 100 MG IV PUSH (11:19)
[2021-05-14] MEDS: FOLIC ACID 1 MG/0.2 ML INJ IV PUSH (11:20)
[2021-05-14] MEDS: ENOXAPARIN 40 MG/0.4 ML SYRINGE SUB-Q (11:20)
[2021-05-14] MEDS: MELATONIN 5 MG TABLET PO (21:21)
[2021-05-15] VITALS (11 sets, daily range): BP systolic 138–165; BP diastolic 99–110; PULSE 73–100; RESP 16–20; TEMP 36.2–36.8; O2SAT 98–100
[2021-05-15 05:05] LABS: Basophils Percent Auto 0.2 % (0.2-1.2); Eosinophils Absolute Auto 0.1 K/mm3 (0-0.3); Eosinophils Percent Auto 1.3 % (0-4.4); Hematocrit 44.3 % (42.0-52.0); Hemoglobin 15.5 g/dL (14.0-18.0); Immature Granulocyte Absolute 0.66 K/mm3 (0.00-0.031); Immature Granulocyte Percent A 6.1 % (0-0.5); Lymphocytes Absolute Auto 1.15 K/mm3 (0.9-3.2); Lymphocytes Percent Auto 10.7 % (18.3-44.2); Mean Corpuscular Hemoglobin 36.8 pg (26-34); Mean Corpuscular Volume 105.2 fl (80-100); Monocytes Absolute Auto 0.9 K/mm3 (0.1-0.6); Monocytes Percent Auto 8.2 % (2.6-8.5); Neutrophils Absolute Auto 7.9 K/mm3 (1.3-6.7); Neutrophils Percent Auto 73.5 % (45.5-73.1); Platelet Count Result 168 k/mm3 (150-375); Red Blood Count 4.21 M/mm3 (4.6-6.20); Red Cell Distribution Width 13.9 % (11.5-14.5); White Blood Count 10.7 K/mm3 (4.5-10.0)
[2021-05-15 05:16] LABS: Alanine Aminotransferase 65 U/L (4-50); Albumin Level 3.4 g/dL (3.5-5.1); Alkaline Phosphatase 149 U/L (38-126); Anion Gap 10 mmol/L (8-16); Aspartate Amino Transferase 113 U/L (17-59); Bilirubin,Total 1.9 mg/dL (0.2-1.3); Blood Urea Nitrogen 6 mg/dL (9-20); Calcium 8.1 mg/dL (8.4-10.2); Carbon Dioxide 19 mmol/L (22-30); Chloride 98 mmol/L (98-107); Estimated CRCL calculation 210 ml/min; Estimated Glomerular Filt Rate > 60; Glucose 121 mg/dL (65-110); Lipase 558 U/L (23-300); Magnesium 2.1 mg/dL (1.6-2.3); Phosphorus 2.6 mg/dL (2.5-4.5); Potassium 3.6 mmol/L (3.4-5.0); Sodium 127 mmol/L (137-145)
[2021-05-15] MEDS: SODIUM CHLORIDE 0.9% IV 1,000 ML 125 ML IV CONT ×2 (08:45→17:47)
[2021-05-15] MEDS: THIAMINE HCL 200 MG/2 ML VIAL 100 MG IV PUSH (08:46)
[2021-05-15] MEDS: ENOXAPARIN 40 MG/0.4 ML SYRINGE SUB-Q (08:46)
[2021-05-15] MEDS: FOLIC ACID 1 MG/0.2 ML INJ IV PUSH (08:49)
[2021-05-15] MEDS: hydrALAZINE HCL 20 MG/ML VIAL 10 MG IV PUSH (13:33)
--- NOTE | 2021-05-15 16:37 | PM.IMPN ---
Progress Note: A&P Assessment and Plan (1) Acute alcoholic pancreatitis: Qualifiers: Acute pancreatitis complication: infected necrosis Qualified Code(s): K85.22 - Alcohol induced acute pancreatitis with infected necrosis Code(s): K85.20 - Alcohol induced acute pancreatitis without necrosis or infection Status: Acute (2) Sepsis: Code(s): A41.9 - Sepsis, unspecified organism Status: Acute (3) Ileus: Code(s): K56.7 - Ileus, unspecified Status: Acute (4) Electrolyte abnormality: Code(s): E87.8 - Other disorders of electrolyte and fluid balance, not elsewhere classified Status: Acute Assessment and Plan: Replace low phosphate and calcium (5) Alcoholism: Code(s): F10.20 - Alcohol dependence, uncomplicated Status: Acute (6) Suspected COVID-19 virus infection: Code(s): Z20.822 - Contact with and (suspected) exposure to COVID-19 Status: Acute Assessment and Plan: COVID test was negative Additional Plan acute pancreatitis, concern for necrotizing pancreatitis likely secondary to alcoholism lipase trending down CT showing evidence of necrotizing pancreatitis evaluated by acid retort operator, recommend transfer to outside hospital as in house surgery will not address pancreatic issue patient has been accepted at [facility], and signed out, awaiting bed 05/15/21 16:37 patient with acute necrotizing pancreatitis secondary to alcohol and opiate abuse today patient states the pain still persist but no nausea or vomit, his lipase are trending down, he has no fever, patient is being transferred to [facility] hospital waiting for the bed, will continue to hydrate the patient and monitor electrolyte and supplement. patient states he will stop drinking and abusing opiates Subjective Date/time seen: 05/15/21 16:37 patient with acute necrotizing pancreatitis secondary to alcohol and opiate abuse today patient states the pain still persist but no nausea or vomit, his lipase are trending down, he has no fever, patient is being transferred to [facility] hospital waiting for the bed, will continue to hydrate the patient and monitor electrolyte and supplement. patient states he will stop drinking and abusing opiates Review of Systems Review of Systems: All systems reviewed & are unremarkable except as noted in HPI and below (HPI) Exam Narrative: Patient is comfortable, NAD HEENT: eyes are clear and none icteric LUNGS: normal respiratory effort ABD: not distended Lower extremities: no edema SKIN: nonjaundiced Neuro: grossly intact normal speech. Objective Data Vital Signs Vital Signs: Vital Signs - 24 hr 05/14/21 18:00 05/14/21 20:00 05/14/21 22:00 Temperature 97.9 F Pulse Rate 87 95 89 Pulse Rate [Bilateral Pedal (Dorsalis Pedis) Palpation] 87 Pulse Rate [Bilateral Radial] 87 Respiratory Rate 18 Blood Pressure 146/104 H Pulse Oximetry 100 05/14/21 23:10 05/15/21 00:00 05/15/21 02:00 Temperature 98 F Pulse Rate 77 83 81 Pulse Rate [Bilateral Pedal (Dorsalis Pedis) Palpation] Pulse Rate [Bilateral Radial] Respiratory Rate 18 Blood Pressure 164/106 H Pulse Oximetry 100 05/15/21 04:00 05/15/21 06:00 05/15/21 08:00 Temperature 97.2 F L 98.1 F Pulse Rate 81 73 81 Pulse Rate [Bilateral Pedal (Dorsalis Pedis) Palpation] Pulse Rate [Bilateral Radial] Respiratory Rate 18 20 Blood Pressure 138/100 H 165/107 H Pulse Oximetry 100 99 05/15/21 10:00 05/15/21 12:00 05/15/21 14:00 Temperature 97.6 F Pulse Rate 81 83 96 Pulse Rate [Bilateral Pedal (Dorsalis Pedis) Palpation] Pulse Rate [Bilateral Radial] Respiratory Rate 16 Blood Pressure 165/105 H Pulse Oximetry 99 05/15/21 16:00 Temperature Pulse Rate 89 Pulse Rate [Bilateral Pedal (Dorsalis Pedis) Palpation] Pulse Rate [Bilateral Radial] Respiratory Rate Blood Pressure Pulse Oximetry Intake/Output Intake/O
[2021-05-15] MEDS: MELATONIN 5 MG TABLET PO (20:35)
[2021-05-16] VITALS: PULSE 86
[2021-05-16] MEDS: SODIUM CHLORIDE 0.9% IV 1,000 ML 125 ML IV CONT ×2 (01:55→11:01)
[2021-05-16 04:00] VITALS: BP 142/71; PULSE 72; RESP 18; TEMP 36.6; O2SAT 99
[2021-05-16 06:42] LABS: Hematocrit 44.4 % (42.0-52.0); Hemoglobin 15.8 g/dL (14.0-18.0); Mean Corpuscular HGB Conc 35.6 g/dl (32-36); Mean Corpuscular Hemoglobin 36.2 pg (26-34); Mean Corpuscular Volume 101.8 fl (80-100); Mean Platelet Volume 9.9 fl (7.4-10.4); Platelet Count Result 190 k/mm3 (150-375); Red Blood Count 4.36 M/mm3 (4.6-6.20); Red Cell Distribution Width 13.6 % (11.5-14.5); White Blood Count 12.3 K/mm3 (4.5-10.0)
[2021-05-16 07:09] LABS: Alanine Aminotransferase 88 U/L (4-50); Albumin Level 3.7 g/dL (3.5-5.1); Alkaline Phosphatase 159 U/L (38-126); Anion Gap 11 mmol/L (8-16); Aspartate Amino Transferase 160 U/L (17-59); Bilirubin,Total 1.6 mg/dL (0.2-1.3); Blood Urea Nitrogen 5 mg/dL (9-20); Calcium 8.3 mg/dL (8.4-10.2); Carbon Dioxide 17 mmol/L (22-30); Chloride 100 mmol/L (98-107); Estimated CRCL calculation 268 ml/min; Estimated Glomerular Filt Rate > 60; Glucose 124 mg/dL (65-110); Lipase 469 U/L (23-300); Potassium 3.8 mmol/L (3.4-5.0); Sodium 128 mmol/L (137-145)
[2021-05-16 08:00] VITALS: BP 151/104; PULSE 71; PULSE 87; RESP 12; TEMP 36.8; O2SAT 99
[2021-05-16] MEDS: ENOXAPARIN 40 MG/0.4 ML SYRINGE SUB-Q (11:00)
[2021-05-16] MEDS: SODIUM CHLORIDE 1 GM TABLET PO (11:00)
[2021-05-16] MEDS: FOLIC ACID 1 MG/0.2 ML INJ IV PUSH (11:00)
[2021-05-16] MEDS: amLODIPine BESYLATE 5 MG TABLET PO (11:00)
[2021-05-16 12:00] VITALS: BP 161/105; PULSE 78; RESP 18; TEMP 36.4; O2SAT 100
--- NOTE | 2021-05-16 12:01 | PM.DS ---
DS: Admitting Diagnosis Admitting Diagnosis Chief Complaint: abdominal pain DS: Discharge Diagnosis Discharge Diagnosis (1) Acute alcoholic pancreatitis: Qualifiers: Acute pancreatitis complication: infected necrosis Qualified Code(s): K85.22 - Alcohol induced acute pancreatitis with infected necrosis Code(s): K85.20 - Alcohol induced acute pancreatitis without necrosis or infection Status: Acute (2) Sepsis: Code(s): A41.9 - Sepsis, unspecified organism Status: Acute (3) Ileus: Code(s): K56.7 - Ileus, unspecified Status: Acute (4) Electrolyte abnormality: Code(s): E87.8 - Other disorders of electrolyte and fluid balance, not elsewhere classified Status: Acute Assessment and Plan: Replace low phosphate and calcium (5) Alcoholism: Code(s): F10.20 - Alcohol dependence, uncomplicated Status: Acute (6) Suspected COVID-19 virus infection: Code(s): Z20.822 - Contact with and (suspected) exposure to COVID-19 Status: Acute Assessment and Plan: COVID test was negative DS: Summary Hospital Course Reason for hospitalization: Chief Complaint: abdominal pain Narrative: 30-year-old male with past medical history of chronic alcohol abuse who presented to the ER from urgent care via EMS due to abdominal pain. The patient reports that he has had abdominal distension for several years due to his chronic alcohol abuse. However his abdomen has been more distended since Friday. He reports onset of generalized abdominal pain that started on Friday and was accompanied by several episodes of emesis. He reports his emesis was of the food he had eaten. He denies any coffee-ground emesis or hematemesis. He reports that the pain seemed to get better over the course of that evening but worse the next morning when he chugged a bottle of water. The pain has become so bad that he has not been able to drink his usual handle of bourbon a day. He has been drinking handle of bourbon a day ever since the beginning of the pandemic. He has drank heavily/daily for the last 10 years. He has never had an episode of alcohol withdrawal in the past but also has not stopped drinking alcohol for more than 24 hours and quite a long time. He reports that he has not been able tolerate any food for the last 4 days. His fiancee reports that his eyes have been yellow for at least several months. She has also noticed that his skin is been more yellow for even longer than that. He reports that his last bowel movement was on Friday and was smaller in amount but normal consistency. He denies any hematochezia or melena. He does report shortness of breath but he relates it to the severity of his abdominal pain and not being able to take a deep breath. He has not been able to sleep well could see usually sleeps lying on his abdomen. He reports that his abdominal pain is currently 5 out in 10 and intensity but is up to a 10/10 intensity when his abdomen is palpated. He has been using OxyContin that he has been buying off the street to help manage his pain. The patient also reported some hematuria in the ER. He reported the hematuria started in the ER and he had a small amount of hematuria once he arrived to the ICU. He denies any dysuria or changes in urinary frequency. The patient was a relatively reliable historian until just before I left the room at which time he started having some mumbling speech. He briefly seemed confused but corrected himself. When I asked him about where he was getting his OxyContin the pointed to the nurse and stated that she had been giving him is OxyContin. Hospital Course: patient was discharged on 05/16/2021 patient with acute necrotizing pancreatitis secondary to alcohol and opiate abuse today patient states the pain still persist but no nausea or vomit, his lipase are trending down, he has no fever, patient is being transferred to [facility] hospital waiting fo
--- NOTE | 2021-05-28 14:36 | PM.PNGS ---
Subjective Subjective Date/Time Seen: 05/28/21 14:36 I did not see pt as consult was supposed to be canceled. Objective Data Meds/Results Radiology Results: ITS Impressions Abdomen/Pelvis CT 05/10/21 14:07 IMPRESSION: 1. Findings consistent with necrotizing pancreatitis with sterile acute necrotic collections. 2. Small volume of ascites. Chest X-Ray 05/10/21 16:21 IMPRESSION: 1. Opacities in the bilateral lower lung zones which could represent atelectasis, pneumonia or pulmonary edema. 2. Small left pleural effusion. Quality VTE Prophylaxis VTE prophylaxis: mechanical ordered (SCDs)
== END 2021-05-16 13:01 | disposition home or self-care (01) | DRG 720 ==
LOC: ANHED 16:20 → ANHIMU 05-11 12:22 → ANHICU 05-17 15:08 → ANHIMU 05-17 15:08
PROVIDERS: Internal Medicine; Admitting Provider Internal Medicine; Emergency Provider Emergency Medicine; Visit Provider Family Medicine
DX: A41.9 Sepsis, unspecified organism (principal); K85.22 Alcohol induced acute pancreatitis with infected necrosis; F10.20 Alcohol dependence, uncomplicated; Z20.822 Contact with and (suspected) exposure to COVID-19; F11.10 Opioid abuse, uncomplicated; K56.7 Ileus, unspecified; E87.8 Other disorders of electrolyte and fluid balance, not elsewhere classified; D69.6 Thrombocytopenia, unspecified; R31.9 Hematuria, unspecified; F17.210 Nicotine dependence, cigarettes, uncomplicated
CPT/HCPCS: 36415; 36600; 71045; 74177; 80053; 80307; 81001; 82375; 82607; 82746; 82805; 83050; 83605; 83615; 83690; 83735; 84100; 85025; 85027; 85055; 85610; 85730; 87040; 93005; 96361; 96365; 96375; 96376; 99285; A9270; C9803; J0360; J0610; J1650; J2060; J2270; J2543; J3010; J3411; J7030; J7050; Q9967; U0003; U0005